=== PATIENT | male | born 1970 | race Caucasian/White ===

== ENCOUNTER 2017-05-22 09:59 | Emergency (ER) | payer SELFPAY ==
[~2017-05-22 09:59] MED LIST: ADVIL200 MG; MULTIVITAMIN1 CAP; TRAMADOL HCL50 MG
== END 2017-05-22 11:30 | disposition left against medical advice (07) ==
LOC: EDMED 09:59
DX: Z53.21 Procedure and treatment not carried out due to patient leaving prior to being seen by health care provider (principal)